=== PATIENT | female | born 1930 | race Caucasian/White ===

== ENCOUNTER 2016-07-17 07:30 | Day surgery (SDC) | payer MEDICARE ==
--- NOTE | 2016-07-10 15:31 | HISTORY AND PHYSICAL E ---
History and Physical NAME: TORRES REYNOSO : 1930 AGE: 85Y ADMITTED: 07/17/2016 ROOM: CHIEF COMPLAINT: 1. Blood in the stool. 2. History of adenoma polyp duodenum. PLAN: Colonoscopy. MEDICATIONS: 1. Coumadin for atrial fibrillation. 2. . 3. Metformin. ALLERGIES: NO KNOWN ALLERGIES. PHYSICAL EXAMINATION: VITAL SIGNS: Blood pressure 120/70, pulse 80, respirations 18, temperature 98. HEAD, EYES, EARS, NOSE, THROAT: Normal. NECK: Supple. LUNGS: Clear. ABDOMEN: Soft. NEUROLOGIC: Negative. Upper endoscopy showed hiatus hernia and duodenal polyp adenoma. At this time she continues to have blood in the stool. PLAN: Colon exam. Later on, consider upper scope. Her is 0.8. Her CA 19-9 is normal. White count 5. Hemoglobin 15. Hematocrit 40. CONCLUSION: 1. Blood in the stool. 2. Adenoma polyp in the duodenum. PLAN: Colonoscopy 07/17/2016. DICTATING PHYSICIAN: SHALONDA GALLAGHER M.D. [id number] PHY#: [id number] ID: [id number] JOB#: [id number] ACCT: [id number] cc:SHALONDA GALLAGHER M.D. >
[~2016-07-17 07:30] MED LIST: AMPICILLIN SODIUM 2 GM in NORMAL SALINE 100 ML IV SCH; DEXTROSE 5%-1/2 NORMAL SALINE 1,000 ML IV PRN; EPINEPHRINE INJ 1 MG/10 ML DISP.SYRIN ONE; FENTANYL CITRATE INJ/PF 100 MCG/2 ML AMPUL ONE; FLUMAZENIL INJ 0.5 MG/5 ML VIAL IV ONE; GENTAMICIN SULFATE 90 MG in DEXTROSE 5%-WATER 100 ML IV PRN; GLUCAGON,HUMAN RECOMB 1 MG INJ ONE; GLYCOPYRROLATE INJ 0.4 MG/2 ML VIAL ONE; LIDOCAINE 2% JELLY 30 ML TUBE ONE; MIDAZOLAM 2 MG/2 ML INJ ONE; NALOXONE HCL INJ/PF 0.4 MG/1 ML SDV ONE; ONDANSETRON HCL INJ/PF 4 MG/2 ML SDV ONE; PROMETHAZINE HCL INJ 25 MG/1 ML VIAL ONE
[2016-07-17] MEDS: MIDAZOLAM 2 MG/2 ML INJ ONE ×2 (08:57→09:05)
[2016-07-17] MEDS: FENTANYL CITRATE INJ/PF 100 MCG/2 ML AMPUL ONE ×3 (08:59→09:07)
[2016-07-17 10:37] LABS: ABSOLUTE LYMPHOCYTES (AUTO) 0.7 10^3/uL (0.5-4.7); ABSOLUTE MONOCYTES (AUTO) 0.9 10^3/uL (0.1-1.4); ABSOLUTE NEUT (AUTO) 3.7 10^3/uL (1.7-8.2); BASOPHILS % (AUTO) 0.8 % (0-2); EOSINOPHILS % (AUTO) 0.2 % (0-6); HEMATOCRIT 34.9 % (36.0-47.0); HEMOGLOBIN 11.9 g/dL (12.0-15.5); HGB HCT DIFFERENCE 0.8; LYMPHOCYTES % (AUTO) 13.1 % (13-45); MEAN CORPUSCULAR HEMOGLOBIN 31.6 pg (27.0-33.4); MEAN CORPUSCULAR HGB CONC 34.1 g/dL (32.0-36.0); MEAN CORPUSCULAR VOLUME 93 fl (80-97); MONOCYTES % (AUTO) 17.3 % (3-13); RED BLOOD COUNT 3.78 10^6/uL (3.72-5.28); RED CELL DISTRIBUTION WIDTH 15.5 % (11.5-14.0); SEGMENTED NEUTROPHILS % (AUTO) 68.6 % (42-78); WHITE BLOOD COUNT 5.4 10^3/uL (4.0-10.5)
[2016-07-17 10:46] VITALS: BP 110/66
--- NOTE | 2016-07-17 13:42 | DISCHARGE SUMMARY E ---
Discharge Summary NAME: TORRES REYNOSO : 1930 AGE: 85Y ADMITTED: 07/17/2016 DISCHARGED: 07/17/2016 HISTORY: The patient is an 85-year-old female who was found to have blood in the stool and she has been admitted for screening colonoscopy. The patient does have diabetes, hypertension, coronary artery disease, bilateral hip replacements, hysterectomy, cataract, pacemaker. She does have adenoma polyps, sessile, in the duodenum, very involved, with no evidence of malignancy, multiple biopsies. She continued to have adenoma polyp that was seen by Dr. Loredo and she is very high risk for Whipple resection. We had been watching it conservatively. The patient is being seen by Dr. Watkins and she is on Coumadin. Today's colonoscopy was successful to the cecum with good prep. Two colon polyps in cecum and ascending injected and resected. DISCHARGE PLAN: 1. Full liquid diet today. 2. Hold Coumadin for 3 days. 3. Awaiting biopsy results. 4. The patient is to see us in the office in the next few days. FINAL DIAGNOSIS: Right colon polyps. No evidence of malignancy. DICTATING PHYSICIAN: SHALONDA GALLAGHER M.D. [id number] PHY#: [id number] ID: [id number] JOB#: [id number] ACCT: [id number] cc:ARNOLD WATKINS M.D., JOSE M.D. ISSA, MAHMOUD M.D. >
--- NOTE | 2016-07-17 13:48 | OPERATIVE REPORT E ---
Operative Report NAME: TORRES REYNOSO : 1930 AGE: 85Y DATE OF SURGERY: 07/17/2016 ROOM: ADDENDUM: The patient underwent colon exam because of stool positive for blood. Today, colonoscopy showed sessile polyp cecum, sessile polyp ascending colon. Both polyps were resected. Discharged on full-liquid diet. Hold Coumadin 3 days. PLAN: Awaiting histopathology. Consider followup colonoscopy 1 year if patient clinically stable. Patient is on Coumadin. She has pacemaker, coronary artery disease. She has sessile polyp, adenoma polyp not resectable by endoscopy, large and she is very high risk for Whipple resection. We will await baseline CEA, CBC. Consider elective upper endoscopy for evaluation of the adenoma polyp in a few weeks. Awaiting biopsy results of the right colon. She may be a candidate for 1 year followup if she is clinically stable. DICTATING PHYSICIAN: SHALONDA GALLAGHER M.D. [id number] Y#: [id number] ID: [id number] JOB#: [id number] ACCT: [id number] cc:DR. THERESA WATKINS JOSE M.D. ISSA, MAHMOUD M.D. >
--- NOTE | 2016-07-17 13:52 | OPERATIVE REPORT E ---
Operative Report NAME: TORRES REYNOSO : 1930 AGE: 85Y DATE OF SURGERY: 07/17/2016 ROOM: PREOPERATIVE DIAGNOSIS: BLOOD IN STOOL. POSTOPERATIVE DIAGNOSES: 1. A SESSILE 0.5 CM POLYP IN THE CECUM. 2. A SESSILE 1 CM POLYP MIDASCENDING COLON. OPERATION: Colonoscopy. SURGEON: SHALONDA GALLAGHER M.D. ANESTHESIA: Versed 2, fentanyl 100. TISSUE REMOVED OR ALTERED: Small polyp 0.5 cm in cecum inject and resect with no difficulties. Another 1 cm sessile polyp in the midascending was injected and resected piecemeal x2 application. PROCEDURE: The patient received antibiotic, ampicillin and gentamicin combination. Rectal exam; normal. Sigmoid descending colon; normal. Transverse colon; normal. Ascending colon; sessile polyp midascending injected and resected in 2 pieces. Cecum; sessile polyp 0.5 cm injected and resected in 2 pieces. Scope withdrawn cecum, ascending, transverse, descending all the way to the rectum. The patient has pacemaker. We applied magnetic during the resection. The patient tolerated the procedure well. She is off Coumadin 5 days. Because of the polyp resection, we are going to stop the Coumadin 3 days post-polypectomy. We will obtain baseline CEA and CBC. Patient discharged on full-liquid diet today, soft low residue for 5 days. Awaiting histopathology. DICTATING PHYSICIAN: SHALONDA GALLAGHER M.D. [id number] [id number] PHY#: [id number] ID: [id number] JOB#: [id number] ACCT: [id number] cc:DR. ROLAND SHUKLA JOSE M.D. ISSA, MAHMOUD M.D. >
== END 2016-07-17 10:45 | disposition home or self-care (01) ==
LOC: END 07:30
PROVIDERS: ATTEND Specialist
PROC: 3E0H8GC Introduction of Other Therapeutic Substance into Lower GI, Via Natural or Artificial Opening Endoscopic (ICD-10-PCS; 2016-07-17)
PROC: 0DBH8ZX Excision of Cecum, Via Natural or Artificial Opening Endoscopic, Diagnostic (ICD-10-PCS; principal; 2016-07-17 08:00)
PROC: 0DBK8ZX Excision of Ascending Colon, Via Natural or Artificial Opening Endoscopic, Diagnostic (ICD-10-PCS; 2016-07-17 08:00)
DX: D12.0 Benign neoplasm of cecum (principal); D12.2 Benign neoplasm of ascending colon; E11.9 Type 2 diabetes mellitus without complications; I10 Essential (primary) hypertension; R97.0 Elevated carcinoembryonic antigen [CEA]; I25.10 Atherosclerotic heart disease of native coronary artery without angina pectoris; I48.91 Unspecified atrial fibrillation; Z79.01 Long term (current) use of anticoagulants; Z79.899 Other long term (current) drug therapy; Z95.0 Presence of cardiac pacemaker; Z96.643 Presence of artificial hip joint, bilateral; Z90.710 Acquired absence of both cervix and uterus; Z91.048 Other nonmedicinal substance allergy status
CPT/HCPCS: 45385; 45381; 36415; 82962; 82378; 85025; J0290; J2250; J3010; J1580; J1610; J2405; J0171; J2310; J2550; J3490

== ENCOUNTER → 2016-08-18 | Outpatient (CLI) | payer MEDICARE | LOC: LAB 11:50 | PROVIDERS: ATTEND Emergency Medicine | DX: M79.89 Other specified soft tissue disorders (principal) | CPT/HCPCS: 36415; 84550 ==

== ENCOUNTER → 2016-09-24 | Outpatient (CLI) | payer MEDICARE | LOC: RAD 10:20 | PROVIDERS: ATTEND Physician Assistant | DX: M10.9 Gout, unspecified (principal) ==

== ENCOUNTER → 2017-02-26 | Outpatient (CLI) | payer MEDICARE ==
[2017-02-26 17:01] LABS: ABSOLUTE LYMPHOCYTES (AUTO) 0.9 10^3/uL (0.5-4.7); ABSOLUTE MONOCYTES (AUTO) 0.7 10^3/uL (0.1-1.4); ABSOLUTE NEUT (AUTO) 2.5 10^3/uL (1.7-8.2); BASOPHILS % (AUTO) 0.4 % (0-2); EOSINOPHILS % (AUTO) 0.4 % (0-6); HEMATOCRIT 35.2 % (36.0-47.0); HEMOGLOBIN 12.3 g/dL (12.0-15.5); HGB HCT DIFFERENCE 1.7; LYMPHOCYTES % (AUTO) 22.3 % (13-45); MEAN CORPUSCULAR HEMOGLOBIN 32.9 pg (27.0-33.4); MEAN CORPUSCULAR VOLUME 94 fl (80-97); MONOCYTES % (AUTO) 17.5 % (3-13); RED BLOOD COUNT 3.75 10^6/uL (3.72-5.28); RED CELL DISTRIBUTION WIDTH 16.2 % (11.5-14.0); SEGMENTED NEUTROPHILS % (AUTO) 59.4 % (42-78); WHITE BLOOD COUNT 4.2 10^3/uL (4.0-10.5)
[2017-02-26 17:17] LABS: ANION GAP 12 (5-19); BLOOD UREA NITROGEN 24 mg/dL (7-20); CALCIUM 9.8 mg/dL (8.4-10.2); CARBON DIOXIDE 23 mmol/L (22-30); CHLORIDE 103 mmol/L (98-107); CREATININE RESULT 0.91 mg/dL (0.52-1.25); GLUCOSE 110 mg/dL (75-110); POTASSIUM 4.3 mmol/L (3.6-5.0); SODIUM 137.6 mmol/L (137-145)
== END ==
LOC: OD 15:02
PROVIDERS: ATTEND Physician Assistant
DX: R42 Dizziness and giddiness (principal)
CPT/HCPCS: 36415; 80048; 85025

== ENCOUNTER → 2018-10-02 | Outpatient (CLI) | payer MEDICARE ==
[2018-10-02 12:59] LABS: HEMATOCRIT 35.7 % (36.0-47.0); HEMOGLOBIN 12.3 g/dL (12.0-15.5); MEAN CORPUSCULAR HEMOGLOBIN 30.6 pg (27.0-33.4); MEAN CORPUSCULAR HGB CONC 34.4 g/dL (32.0-36.0); MEAN CORPUSCULAR VOLUME 89 fl (80-97); RED BLOOD COUNT 4.02 10^6/uL (3.72-5.28); RED CELL DISTRIBUTION WIDTH 15.2 % (11.5-14.0); WHITE BLOOD COUNT 3.4 10^3/uL (4.0-10.5)
[2018-10-02 13:00] LABS: PROTHROMBIN TIME 13.7 SEC (11.4-15.4)
[2018-10-02 13:17] LABS: ALANINE AMINOTRANSFERASE 20 U/L (9-52); ALBUMIN 4.4 g/dL (3.5-5.0); ALKALINE PHOSPHATASE 72 U/L (38-126); ANION GAP 13 (5-19); ASPARTATE AMINO TRANSFERASE 24 U/L (14-36); BILIRUBIN,DIRECT 0.2 mg/dL (0.0-0.4); BILIRUBIN,TOTAL 0.8 mg/dL (0.2-1.3); BLOOD UREA NITROGEN 21 mg/dL (7-20); CARBON DIOXIDE 27 mmol/L (22-30); CHLORIDE 99 mmol/L (98-107); GLUCOSE 160 mg/dL (75-110); POTASSIUM 4.4 mmol/L (3.6-5.0); TOTAL PROTEIN 7.2 g/dL (6.3-8.2); URIC ACID 6.7 mg/dL (2.5-7.5)
[2018-10-02 13:19] LABS: ANION GAP 13 (5-19); BLOOD UREA NITROGEN 21 mg/dL (7-20); CARBON DIOXIDE 27 mmol/L (22-30); CHLORIDE 99 mmol/L (98-107); GLUCOSE 160 mg/dL (75-110); POTASSIUM 4.4 mmol/L (3.6-5.0)
[2018-10-02 13:50] LABS: PLATELET COUNT 41 10^3/uL (150-450)
== END ==
LOC: OD 12:00
PROVIDERS: ATTEND Internal Medicine
DX: I10 Essential (primary) hypertension (principal); I49.5 Sick sinus syndrome; E79.0 Hyperuricemia without signs of inflammatory arthritis and tophaceous disease; E11.9 Type 2 diabetes mellitus without complications
CPT/HCPCS: 36415; 80048; 80053; 83735; 84550; 85027; 85610